=== PATIENT | male | born 1970 | race Caucasian/White ===

== ENCOUNTER 2019-10-16 21:25 | Emergency (ER) | payer BC ==
[~2019-10-16] VITALS: Ht 182.9 cm; Wt 113.4 kg
[2019-10-16] MEDS ORDERED: SINGULAIR 10 MG10 M1 PO (21:37)
[2019-10-16] MEDS ORDERED: PREDNISONE 20 M20 M1 PO (22:24)
[2019-10-16 22:38] VITALS: BP 148/86
== END 2019-10-16 22:41 | disposition home or self-care (01) ==
LOC: M.ERS 21:25
DX: J04.0 Acute laryngitis (principal); J45.909 Unspecified asthma, uncomplicated; Z88.6 Allergy status to analgesic agent